=== PATIENT | female | born 1965 | race Two or more races ===

== ENCOUNTER → 2022-06-19 | Day surgery (SDC) | payer OTHER | END | disposition home or self-care (01) | LOC: ADM 06-15 14:15 → AMB-ENDOS 07:02 | PROVIDERS: ATTEND Surgery | DX: D12.5 Benign neoplasm of sigmoid colon (principal); K59.09 Other constipation; R59.0 Localized enlarged lymph nodes; Z20.822 Contact with and (suspected) exposure to COVID-19 ==

== ENCOUNTER 2022-06-26 09:45 | Inpatient (IN) | payer OTHER ==
[~2022-06-26] VITALS: Ht 160 cm; Wt 87.1 kg
[2022-06-26] MEDS ORDERED: B12 ACTIVE1000 MCG PO (12:43)
[2022-06-26] MEDS ORDERED: CRESTOR20 MG PO (12:43)
[2022-06-26] MEDS ORDERED: LEVO-T88 MCG PO (12:43)
[2022-06-26] MEDS ORDERED: CALCIUM500 M1 PO (12:44)
[2022-06-26] MEDS ORDERED: D3 + K2 DOTS 11 EACH PO (12:44)
[2022-06-26] MEDS ORDERED: VITAMIN E400 UNI7 PO (12:44)
[2022-07-02] MEDS ORDERED: NEURONTIN300 MG PO (15:39)
[2022-07-02] MEDS ORDERED: ACETAMINOPHEN500 M2 PO (15:39)
== END 2022-07-02 16:41 | disposition home or self-care (01) | DRG 331 ==
LOC: EDUNIT# 09:45 → SURG 09:45 → O/R 06-29 07:33 → SURH 06-29 12:27
PROVIDERS: ADMIT Surgery; ATTEND Surgery
PROC: 07BC4ZZ Excision of Pelvis Lymphatic, Percutaneous Endoscopic Approach (ICD-10-PCS; 2022-06-29)
PROC: 0DJD8ZZ Inspection of Lower Intestinal Tract, Via Natural or Artificial Opening Endoscopic (ICD-10-PCS; 2022-06-29)
PROC: 0DTN4ZZ Resection of Sigmoid Colon, Percutaneous Endoscopic Approach (ICD-10-PCS; principal; 2022-06-29 07:00)
DX: C18.7 Malignant neoplasm of sigmoid colon (principal); Z20.822 Contact with and (suspected) exposure to COVID-19

== ENCOUNTER 2022-08-10 05:50 | Day surgery (SDC) | payer OTHER ==
[~2022-08-10 05:50] MED LIST: ACETAMINOPHEN500 M2 PO; B-COMPLEX1 EACH PO; B12 ACTIVE1000 MCG PO; CALCIUM500 M1 PO; CRESTOR20 MG PO; D3 + K2 DOTS 11 EACH PO; LEVO-T88 MCG PO; NEURONTIN300 MG PO; VITAMIN E400 UNI7 PO
[2022-08-10] MEDS ORDERED: TRAM1TAB98 PO (09:11)
== END 2022-08-10 12:05 | disposition home or self-care (01) ==
LOC: CIR.AMB 05:50
PROVIDERS: ATTEND Surgery
DX: C18.7 Malignant neoplasm of sigmoid colon (principal); K59.09 Other constipation; R59.0 Localized enlarged lymph nodes; Z20.822 Contact with and (suspected) exposure to COVID-19